=== PATIENT | female | born 1935 | race Caucasian/White ===

== ENCOUNTER 2020-11-28 19:49 | Emergency (ER) | payer OTHER ==
[~2020-11-28] VITALS: Ht 152.4 cm; Wt 49.9 kg
[~2020-11-28 19:49] MED LIST: AVAPRO150 MG
[2020-11-28] MEDS ORDERED: ECOTRIN81 MG (20:33)
[2020-11-28] MEDS ORDERED: CARDIZEM120 MG (20:33)
[2020-11-28] MEDS ORDERED: CRESTOR10 MG (20:33)
[2020-11-28] MEDS ORDERED: DICLOFENAC SODI75 MG PO (22:56)
== END 2020-11-28 23:21 | disposition home or self-care (01) ==
LOC: ER 19:49
DX: M54.5 Low back pain (principal); R10.31 Right lower quadrant pain; R10.11 Right upper quadrant pain